=== PATIENT | male | born 1965 | race Caucasian/White ===

== ENCOUNTER → 2017-01-03 | Outpatient (CLI) | payer MEDICARE, OTHER ==
[~2017-01-03] MED LIST: DEPA500T3 PO; DILA100C PO; HYDR-3580 PO
--- NOTE | 2017-01-03 14:31 | RADRPT ---
EXAM DATE/TIME: 01/03/2017 10:24 [facility] COMPARISON: No previous studies available for comparison. INDICATIONS : Low back pain, injury during a seizure 10 months ago. MEDICAL HISTORY : Epilepsy SURGICAL HISTORY : left femur surgery ENCOUNTER: Initial ACUITY: 7 - 11 months PAIN SCORE: 8/10 LOCATION: Bilateral lumbar spine FINDINGS: There are five non-rib bearing vertebral bodies. The vertebral bodies are in normal alignment withou t evidence of subluxation or scoliosis. The disc spaces are maintained. The posterior elements are intact without evidence of spondylolysis. The pedicles are intact. Bony mineralization is normal. No fracture is identified. CONCLUSION: No acute disease. Rdui Burton MD on January 03, 2017 at 14:28 Board Certified Radiologist. This report was verified electronically.
== END ==
LOC: HRAD 09:54
PROVIDERS: ATTEND Family Medicine
DX: M54.5 Low back pain (principal)
CPT/HCPCS: 72110

== ENCOUNTER 2017-03-19 14:15 | Emergency (ER) | payer OTHER ==
[~2017-03-19] VITALS: Ht 172.7 cm; Wt 51.0 kg
[2017-03-19 14:18] VITALS: BP 153/85; PULSE 86; RESP 16; TEMP 98.1; O2SAT 98
--- NOTE | 2017-03-19 14:30 | PD ---
Physical Exam Date Seen by Provider: Mar 19, 2017 Time Seen by Provider: 14:26 Narrative Pt presents with back pain, pt states he fell yesterday. He was going to get the mail and the ground was wet, he slipped and fell. He reports hitting his head. He states the pain is worse today which is what prompted him to seek treatment. He doesn't remember what happened initially after the fall. Pt appears groggy in triage. VSS. Awaiting bed placement. Data Data Last Documented VS Vital Signs Date Time Temp Pulse Resp B/P (MAP) Pulse Ox O2 Delivery O2 Flow Rate FiO2 03/19/17 14:18 98.1 86 16 153/85 (107) 98 MDM Supervised Visit with STEVEN: Ondina Lucas Mar 19, 2017 14:29
[2017-03-19 14:39] VITALS: BP 134/69; PULSE 84; RESP 24; O2SAT 99
[2017-03-19] MEDS ORDERED: SODIUM CHLOR 0.9% 1000 ML INJ 1,000 ML IV ONE (14:46)
[2017-03-19] MEDS ORDERED: DEPA500T3 PO (14:51)
[2017-03-19] MEDS ORDERED: DILA100C PO (14:51)
--- NOTE | 2017-03-19 14:55 | PD ---
HPI Chief Complaint: Fall Time Seen by Provider: 14:46 Travel History International Travel<30 days: No Contact w/Intl Traveler<30days: No Traveled to known affect area: No History of Present Illness HPI Patient comes in for evaluation status post fall that occurred yesterday around 1600. Patient he was walking to get the mail when the fall occurred. Patient uncertain if he had a syncopal episode, had a seizure, or just tripped and fell. Patient states he was walking to the mailbox and the next thing he new he was on the ground looking up at his family. Patient's is uncertain if anyone saw this happen. Patient states he's been taking his seizure medication as prescribed. Patient complaining primarily of right low back pain describes as a achy soreness without radiation. Patient has tried ibuprofen along with ice with little improvement of his symptoms. Pain is worse with walking and certain movement. Patient also complaining of left-sided chest pain when he takes a deep breath or coughs. Denies any headache, change in vision, facial pain, neck pain, possible change in bowel or bladder, abdominal pain, fevers, or drug use. He states he has not done drugs in a couple of years. PFSH Past Medical History Arthritis: No Asthma: No Autoimmune Disease: No Blood Disorders: No Anxiety: Yes Depression: Yes Heart Rhythm Problems: No Cancer: Yes (Spinal cancer) Cardiovascular Problems: Yes High Cholesterol: No Chemotherapy: Yes Chest Pain: No Congestive Heart Failure: No COPD: No Cerebrovascular Accident: No Diabetes: No Diminished Hearing: Yes ([place]) Endocrine: No Gastrointestinal Disorders: No GERD: No Glaucoma: No Genitourinary: No Headaches: Yes Hepatitis: No Hiatal Hernia: No Hypertension: Yes (NOT TREATED FOR HTN) Immune Disorder: No Implanted Vascular Access Dvce: No Kidney Stones: No Musculoskeletal: Yes (Spinal cancer) Neurologic: Yes Psychiatric: Yes Reproductive: No Respiratory: No Immunizations Current: No Migraines: No Myocardial Infarction: No Radiation Therapy: Yes Renal Failure: No Seizures: Yes Sickle Cell Disease: No Sleep Apnea: No Thyroid Disease: No Ulcer: No PNEUMOCCOCAL Vaccine (Year): 2 Past Surgical History Abdominal Surgery: No AICD: No Appendectomy: No Arteriovenous Shunt: No Cardiac Surgery: No Cholecystectomy: No Ear Surgery: No Endocrine Surgery: No Eye Surgery: No Genitourinary Surgery: No Gynecologic Surgery: No Insulin Pump: No Joint Replacement: No Neurologic Surgery: No Oral Surgery: No Pacemaker: No Thoracic Surgery: No Other Surgery: Yes (Left middle finger 2004) Social History Alcohol Use: No (HX OF) Tobacco Use: Yes (PACK A DAY) Substance Use: Yes (Marijuana) Allergies-Medications (Allergen,Severity, Reaction): Coded Allergies: No Known Allergies (Verified , 03/19/17) Reported Meds & Prescriptions Reported Meds & Active Scripts Active Flexeril (Cyclobenzaprine HCl) 10 Mg Tab 10 Mg PO Q8HR PRN Naprosyn (Naproxen) 500 Mg Tab 500 Mg PO Q12HR PRN Hydrocodone-Acetaminophen 7.5-325 mg Tab 1 Tab PO Q4H PRN Reported Dilantin (Phenytoin Extended) 100 Mg Cap 100 Mg PO BID Depakote ER (Divalproex Sodium) 500 Mg Bello 500 Mg PO TID Review of Systems Except as stated in HPI: all other systems reviewed are Neg Physical Exam Narrative GENERAL: Well-developed, under nourished, in no acute distress, and non-ill appearing. SKIN: Focused skin assessment warm and dry. HEAD: Atraumatic. Normocephalic. EYES: Pupils equal and round. EOMI. No scleral icterus. No injection or drainage. ENT: No nasal bleeding or discharge. Mucous membranes pink and moist. NECK: Trachea midline. Supple. No nuclear rigidity. CARDIOVASCULAR: Regular rate and rhythm. No murmur appreciated. RESPIRATORY: No accessory muscle use. No respiratory distress. Clear to auscultation. Breath sounds equal bilaterally. GASTROINTESTINAL: Abdomen soft, non-tender, nondistended, and no guarding. Hepatic and splenic margins not palpable. No pulsatile mass. MUSCULOSKELETAL: No obvious deformities. No clubbing. No cyanosis. No edema. Full range of motion. Patient reports tenderness to her to us, so the right lumbar spine. There is no tenderness or crepitus or midline throughout spinal column. Straight leg test negative bilaterally.Hip: FROM and equal BL with passive flexion, extension, Abduction, Adduction, and internal/external rotation. Pulses equal BL distal to injury. Capillary refill less than 2 seconds distal to injury and equal BL. FROM distal to injury and equal BL. Strength distal to injury equal BL. NV intact distal to injury and equal BL. Plantar flexion and dorsal flexion equal BL. Dorsal pulses equal BL. Sensation equal BL 1st web space. NEUROLOGICAL: Awake and alert. No obvious cranial nerve deficits. Motor grossly within normal limits. Normal speech. PSYCHIATRIC: Appropriate mood and affect; insight and judgment normal. Data Data Last Documented VS Vital Signs Date Time Temp Pulse Resp B/P (MAP) Pulse Ox O2 Delivery O2 Flow Rate FiO2 03/19/17 19:03 03/19/17 16:03 18 03/19/17 14:46 81 99 Room Air 03/19/17 14:18 98.1 Orders Orders Electrocardiogram (03/19/17 14:46) Basic Metabolic Panel (Bmp) (03/19/17 14:46) Comprehensive Metabolic Panel (03/19/17 14:46) Magnesium (Mg) (03/19/17 14:46) Ckmb (Isoenzyme) Profile (03/19/17 14:46) Troponin I (03/19/17 14:46) Act Partial Throm Time (Ptt) (03/19/17 14:46) Prothrombin Time / Inr (Pt) (03/19/17 14:46) Urinalysis - C+S If Indicated (03/19/17 14:46) Chest, Single Ap (03/19/17 14:46) Ct Brain W/O Iv Contrast(Rout) (03/19/17 14:46) Ct Cerv Spine W/O Contrast (03/19/17 14:46) Ecg Monitoring (03/19/17 14:46) Iv Access Insert/Monitor (03/19/17 14:46) Oximetry (03/19/17 14:46) Sodium Chloride 0.9% Flush (Ns Flush) (03/19/17 15:00) Sodium Chlor 0.9% 1000 Ml Inj (Ns 1000 M (03/19/17 14:46) Spine, Lumbar - Ltd (Ap & Lat) (03/19/17 14:46) Valproic Acid (Depakene) (03/19/17 14:46) Phenytoin (Dilantin) (03/19/17 14:46) Drug Screen, Random Urine (03/19/17 14:46) Morphine Inj (Morphine Inj) (03/19/17 15:00) Ondansetron Inj (Zofran Inj) (03/19/17 15:00) Complete Blood Count With Diff (03/19/17 15:41) CKMB (03/19/17 14:58) CKMB% (03/19/17 14:58) Phenytoin (Dilantin) (03/19/17 18:00) Labs Laboratory Tests Test 03/19/17 14:58 03/19/17 15:44 Prothrombin Time 10.8 SEC Prothromb Time International Ratio 1.0 RATIO Activated Partial Thromboplast Time 29.4 SEC Blood Urea Nitrogen 17 MG/DL Creatinine 0.80 MG/DL Random Glucose 89 MG/DL Total Protein 6.8 GM/DL Albumin 3.5 GM/DL Calcium Level 8.3 MG/DL Magnesium Level 2.1 MG/DL Alkaline Phosphatase 101 U/L Aspartate Amino Transf (AST/SGOT) 24 U/L Alanine Aminotransferase (ALT/SGPT) 23 U/L Total Bilirubin 0.6 MG/DL Sodium Level 138 MEQ/L Potassium Level 3.7 MEQ/L Chloride Level 102 MEQ/L Carbon Dioxide Level 28.0 MEQ/L Anion Gap 8 MEQ/L Estimat Glomerular Filtration Rate 102 ML/MIN Total Creatine Kinase 280 U/L Creatine Kinase MB 5.3 NG/ML Troponin I 0.02 NG/ML Phenytoin (Dilantin) Level 1.0 MCG/ML Valproic Acid (Depakene) Level 88 MCG/ML White Blood Count 6.3 TH/MM3 Red Blood Count 4.49 MIL/MM3 Hemoglobin 14.1 GM/DL Hematocrit 42.0 % Mean Corpuscular Volume 93.5 FL Mean Corpuscular Hemoglobin 31.4 PG Mean Corpuscular Hemoglobin Concent 33.5 % Red Cell Distribution Width 14.5 % Platelet Count 211 TH/MM3 Mean Platelet Volume 8.6 FL Neutrophils (%) (Auto) 78.9 % Lymphocytes (%) (Auto) 11.9 % Monocytes (%) (Auto) 8.0 % Eosinophils (%) (Auto) 0.8 % Basophils (%) (Auto) 0.4 % Neutrophils # (Auto) 5.0 TH/MM3 Lymphocytes # (Auto) 0.8 TH/MM3 Monocytes # (Auto) 0.5 TH/MM3 Eosinophils # (Auto) 0.1 TH/MM3 Basophils # (Auto) 0.0 TH/MM3 CBC Comment DIFF FINAL Differential Comment MDM Medical Decision Making Medical Screen Exam Complete: Yes Emergency Medical Condition: Yes Interpretation(s) EKG reviewed by Dr. Bruce shows normal sinus rhythm with ventricular rate of 77. No STEMI. Chest x-ray by the radiologist shows: No acute disease. Differential Diagnosis Fracture, strain, contusion, syncope, subtherapeutic Dilantin, intracranial hemorrhage, closed head injury, pneumothorax, acute coronary syndrome, electrolyte abnormality, other Narrative Course Patient presents with apparent back strain. The patient presented complaining of back pain. There was history of preceding trauma. X-rays were obtained and no obvious fracture or acute disease was noted at this time. The patient has no neurological complaints. The patient has been behaving normally and no notable altered mental status. Orlando score of 15. The patients neurological exam is normal with normal motor and sensory. There is no saddle paresthesias reported and no bowel or bladder incontinence or retention. . The patients evaluation was consistent with soft tissue injury and not consistent with bony injury. Clinical suspicion, plan of care and management was discussed with the patient. The patient was instructed to follow up with their health care provider. The patient was also instructed to return if the pain worsened, changed, or developed weakness or bowel or bladder trouble. The patient agreed with plan. There was no evidence to support genitourinary etiology. There is also no evidence to suggest vascular pathology such as AAA dissection. No fevers or other evidence to suspect infectious processes, abscess etc. Patient presents with closed head injury. There was no evidence of cranial or intracranial injury noted on CT of the head and no evidence of fracture or injury to cervical spine on C-spine CT. The patient has been behaving normally and no notable altered mental status. Orlando score of 15. The neurologic exam is normal. The patient is awake and aware and motor sensory exams are normal. There is no clinical evidence to support intracranial injury or bleed. Upon reexamination patient is in no acute distress. Patient in no obvious distress upon re-evaluation sleeping comfortably in bed . All pertinent laboratory/Radiology result(s) discussed with patient. Patient never did provide a urine sample. Patient was asked if they wanted to speak to my attending, which the patient did not wish to do at this time. Discussed patient with Dr. Bruce prior to discharge, was in agreement with plan of care and disposition. Any questions/concerns in reference to patient diagnosis/ condition discussed and clarified prior to patient's discharge. Reinforced sheer importance of close follow up with patient's primary physician or primary care clinic. Instructed patient to return to ED immediately, if symptoms return/ worsen. Pt showed understanding of above instructions. Further instructions and recommendations were detailed in discharge paperwork. Pt ambulated without difficulty out of ED at discharge. Diagnosis Primary Impression: Low back strain Qualified Codes: S39.012A - Strain of muscle, fascia and tendon of lower back , initial encounter Additional Impressions: Closed head injury Qualified Codes: S09.90XA - Unspecified injury of head, initial encounter Subtherapeutic serum dilantin level Referrals: [facility] Patient Instructions: Encephalopathy (GEN), General Instructions, Head Injury ( ED), Low Back Strain (ED), Phenytoin (By mouth) Additional Instructions: Follow-up with your primary care physician this week for reevaluation and recheck of your Dilantin level. Take all medication as prescribed. Return to the emergency department if symptoms get worse. Med/Other Pt SpecificInfo: Prescription(s) given Scripts Cyclobenzaprine (Flexeril) 10 Mg Tab 10 MG PO Q8HR Y for MUSCLE PAIN, #15 TAB 0 Refills Prov: Callum Bruce MD 03/19/17 Naproxen (Naprosyn) 500 Mg Tab 500 MG PO Q12HR Y for PAIN SCALE 1 TO 10, #14 TAB 0 Refills Prov: Callum Bruce MD 03/19/17 Disposition: 01 DISCHARGE HOME Condition: Stable Ric Lucas Mar 19, 2017 14:55
[2017-03-19] MEDS ORDERED: ONDANSETRON HCL 4 MG/2 ML VIAL IV PUSH ONE (15:00)
[2017-03-19] MEDS ORDERED: MORPHINE SULFATE 4 MG/ML INJ IV PUSH ONE (15:00)
[2017-03-19] MEDS ORDERED: SODIUM CHLORIDE 0.9% FLUSH 10 ML FLUSH IVF PRN (15:00)
[2017-03-19 15:38] LABS: APTT (PATIENT) 29.4 SEC (24.3-30.1); PROTHROMBIN TIME - PATIENT 10.8 SEC (9.8-11.6)
[2017-03-19 15:47] LABS: ANION GAP 8 MEQ/L (5-15); AST (GOT) 24 U/L (15-37); BLOOD UREA NITROGEN 17 MG/DL (7-18); CHLORIDE 102 MEQ/L (98-107); GLOMERULAR FILTRATION RATE 102 ML/MIN (>89); MAGNESIUM 2.1 MG/DL (1.5-2.5); POTASSIUM 3.7 MEQ/L (3.5-5.1); SODIUM (NA) 138 MEQ/L (136-145)
[2017-03-19 15:50] LABS: ALKALINE PHOSPHATASE 101 U/L (45-117); ALT (GPT) 23 U/L (12-78); CREATINE KINASE 280 U/L (39-308); TOTAL BILIRUBIN ADULT 0.6 MG/DL (0.2-1.0)
--- NOTE | 2017-03-19 15:56 | RADRPT ---
EXAM DATE/TIME: 03/19/2017 15:30 [facility] COMPARISON: No previous studies available for comparison. INDICATIONS : Left chest pain. MEDICAL HISTORY : Seizures. SURGICAL HISTORY : None. ENCOUNTER: Initial ACUITY: 4 - 6 days PAIN SCORE: 4/10 LOCATION: Left chest FINDINGS: A single view of the chest demonstrates the lungs to be symmetrically aerated without evidence of mas s, infiltrate or effusion. The cardiomediastinal contours are unremarkable. Osseous structures are intact. CONCLUSION: No acute disease. Deepak Suarez MD FACR on March 19, 2017 at 15:54 Board Certified Radiologist. This report was verified electronically.
--- NOTE | 2017-03-19 15:59 | RADRPT ---
EXAM DATE/TIME: 03/19/2017 15:35 [facility] COMPARISON: No previous studies available for comparison. INDICATIONS : Back pain after passing out and falling. MEDICAL HISTORY : None. SURGICAL HISTORY : None. ENCOUNTER: Initial ACUITY: 1 day PAIN SCORE: 10/10 LOCATION: Left middle back. FINDINGS: Two view examination was performed. There are five non-rib bearing vertebral bodies. The vertebral bodies are in normal alignment without evidence of subluxation or scoliosis. The disc spaces are mari ntained. The pedicles are intact. Bony mineralization is normal. No fracture is identified. CONCLUSION: Negative for an acute process. Deepak Suarez MD FACR on March 19, 2017 at 15:55 Board Certified Radiologist. This report was verified electronically.
[2017-03-19 16:03] VITALS: RESP 18
[2017-03-19 16:03] LABS: CKMB 5.3 NG/ML (0.5-3.6)
[2017-03-19 16:07] LABS: BASOPHIL % 0.4 % (0.0-2.0); EOSINOPHIL # 0.1 TH/MM3 (0-0.4); EOSINOPHIL % 0.8 % (0.0-4.0); HEMO FLAGS DIFF FINAL; LYMPH % 11.9 % (9.0-44.0); LYMPHOCYTE # 0.8 TH/MM3 (1.0-4.8); MEAN CELL VOLUME 93.5 FL (80.0-100.0); MEAN CORPUSCULAR HEMOGLOBIN 31.4 PG (27.0-34.0); MEAN CORPUSCULAR HGB CONC 33.5 % (32.0-36.0); NEUT % 78.9 % (16.0-70.0); PLATELET COUNT 211 TH/MM3 (150-450); RED BLOOD COUNT 4.49 MIL/MM3 (4.50-5.90); RED CELL DISTRIBUTION WIDTH 14.5 % (11.6-17.2); WHITE BLOOD COUNT 6.3 TH/MM3 (4.0-11.0)
--- NOTE | 2017-03-19 17:04 | RADRPT ---
EXAM DATE/TIME: 03/19/2017 16:20 [facility] COMPARISON: CT BRAIN W/O CONTRAST, June 19, 2016, 13:52. INDICATIONS : Trauma; fall yesterday. RADIATION DOSE: 38.69 CTDIvol (mGy) MEDICAL HISTORY : Hypertension. Carcinoma, not otherwise specified. SURGICAL HISTORY : None. ENCOUNTER: Initial ACUITY: 1 day PAIN SCALE: 5/10 LOCATION: cranial TECHNIQUE: Multiple contiguous axial images were obtained of the head. Using automated exposure control and adj ustment of the mA and/or kV according to patient size, radiation dose was kept as low as reasonably a chievable to obtain optimal diagnostic quality images. DICOM format image data is available electro nically for review and comparison. FINDINGS: CEREBRUM: The ventricles are normal for age. No evidence of midline shift, mass lesion, hemorrhage or acute in farction. No extra-axial fluid collections are seen. POSTERIOR FOSSA: The cerebellum and brainstem are intact. The 4th ventricle is midline. The cerebellopontine angle i s unremarkable. EXTRACRANIAL: The visualized portion of the orbits is intact. SKULL: The calvaria is intact. No evidence of skull fracture. CONCLUSION: Negative for acute traumatic injury. Deepak Suarez MD FACR on March 19, 2017 at 17:02 Board Certified Radiologist. This report was verified electronically.
--- NOTE | 2017-03-19 17:31 | RADRPT ---
EXAM DATE/TIME: 03/19/2017 16:20 [facility] COMPARISON: CT CERVICAL SPINE W/O CONTRAST, June 22, 2016, 12:32. INDICATIONS : Trauma; fall yesterday. RADIATION DOSE: 39.41 CTDIvol (mGy) MEDICAL HISTORY : Seizures. Carcinoma, not otherwise specified. SURGICAL HISTORY : None. ENCOUNTER: Initial ACUITY: 1 day PAIN SCALE: 6/10 LOCATION: Bilateral neck TECHNIQUE: Volumetric scanning of the cervical spine was performed. Multiplanar reconstructions in the sagittal, coronal and oblique axial planes were performed. Using automated exposure control and adjustment o f the mA and/or kV according to patient size, radiation dose was kept as low as reasonably achievable to obtain optimal diagnostic quality images. DICOM format image data is available electronically f or review and comparison. FINDINGS: VERTEBRAE: Normal vertebral body height. ALIGNMENT: No evidence of subluxation. C2-C3: The bony spinal canal is normal in size. No evidence of disc bulge or herniation. The neural forami na are bilaterally patent. C3-C4: The bony spinal canal is normal in size. No evidence of disc bulge or herniation. The neural forami na are bilaterally patent. C4-C5: The bony spinal canal is normal in size. No evidence of disc bulge or herniation. The neural forami na are bilaterally patent. C5-C6: The bony spinal canal is normal in size. No evidence of disc bulge or herniation. The neural forami na are bilaterally patent. C6-C7: The bony spinal canal is normal in size. No evidence of disc bulge or herniation. The neural forami na are bilaterally patent. C7-T1: The bony spinal canal is normal in size. No evidence of disc bulge or herniation. The neural forami na are bilaterally patent. CONCLUSION: Negative for fracture. Deepak Suarez MD FACR on March 19, 2017 at 17:21 Board Certified Radiologist. This report was verified electronically.
[2017-03-19] MEDS ORDERED: CYCL1TAB29 PO (17:55)
[2017-03-19] MEDS ORDERED: NAPR500 PO (17:55)
[2017-03-19] MEDS ORDERED: PHENYTOIN SODIUM 100 MG CAP PO ONE (18:00)
--- NOTE | 2017-03-20 13:18 | EKG ---
Date Performed: 03/19/2017 Time Performed: 15:03:18 PTAGE: 52 years EKG: Sinus rhythm POSSIBLE RIGHT ATRIAL ENLARGEMENT POSSIBLE LEFT ATRIAL ENLARGEMENT BORDERLINE ECG PREVIOUS TRACING : 06/19/2016 13.17 Compared to prior tracing no significant change DOCTOR: Bronwyn Prajapati Interpretating Date/Time 03/20/2017 13:16:33
== END 2017-03-19 19:05 | disposition home or self-care (01) ==
LOC: NEPE 14:15
DX: S39.012A Strain of muscle, fascia and tendon of lower back, initial encounter (principal); S09.90XA Unspecified injury of head, initial encounter; W01.0XXA Fall on same level from slipping, tripping and stumbling without subsequent striking against object, initial encounter; Y93.01 Activity, walking, marching and hiking; Z72.0 Tobacco use; Z79.899 Other long term (current) drug therapy
CPT/HCPCS: 70450; 71010; 72100; 72125; 80053; 80164; 80185; 82550; 82552; 83735; 84484; 85025; 85610; 85730; 93005; 96361; 96374; 96375; 99285; J2270; J2405; J7030

== ENCOUNTER 2017-05-07 13:08 | Emergency (ER) | payer OTHER ==
[~2017-05-07] VITALS: Ht 172.7 cm; Wt 47.0 kg
[~2017-05-07 13:08] MED LIST changes: +CYCL1TAB29 PO; +NAPR500 PO
[2017-05-07 13:11] VITALS: BP 147/80; PULSE 110; RESP 16; TEMP 97.8; O2SAT 100
[2017-05-07] MEDS ORDERED: ROBA500T PO (14:26)
--- NOTE | 2017-05-07 14:26 | PD ---
HPI Chief Complaint: Back/ Neck Pain or Injury Time Seen by Provider: 13:31 Travel History International Travel<30 days: No Contact w/Intl Traveler<30days: No Traveled to known affect area: No History of Present Illness HPI 52 year old male with history of C7 fracture and chronic low back pain presents to the ED for evaluation of back pain. Pt denies any new injury. No focal deficits or weakness. No saddle paresthesia or loss of bowel or bladder. Pt states the pain is constant and across his entire lower back. Rates it a 6/10. Denies urinary symptoms. No recent illnesses, fever, or chills.Pt is out of pain control. Denies IVDA. He has no other symptoms to report. PFSH Past Medical History Arthritis: No Asthma: No Autoimmune Disease: No Blood Disorders: No Anxiety: Yes Depression: Yes Heart Rhythm Problems: No Cancer: Yes (Spinal cancer) Cardiovascular Problems: Yes High Cholesterol: No Chemotherapy: Yes Chest Pain: No Congestive Heart Failure: No COPD: No Cerebrovascular Accident: No Diabetes: No Diminished Hearing: Yes ([place] Endocrine: No Gastrointestinal Disorders: No GERD: No Glaucoma: No Genitourinary: No Headaches: Yes Hepatitis: No Hiatal Hernia: No Hypertension: Yes (NOT TREATED FOR HTN) Immune Disorder: No Implanted Vascular Access Dvce: No Kidney Stones: No Musculoskeletal: Yes (Spinal cancer) Neurologic: Yes Psychiatric: Yes Reproductive: No Respiratory: No Immunizations Current: No Migraines: No Myocardial Infarction: No Radiation Therapy: Yes Renal Failure: No Seizures: Yes Sickle Cell Disease: No Sleep Apnea: No Thyroid Disease: No Ulcer: No PNEUMOCCOCAL Vaccine (Year): 2 Past Surgical History Abdominal Surgery: No AICD: No Appendectomy: No Arteriovenous Shunt: No Cardiac Surgery: No Cholecystectomy: No Ear Surgery: No Endocrine Surgery: No Eye Surgery: No Genitourinary Surgery: No Gynecologic Surgery: No Insulin Pump: No Joint Replacement: No Neurologic Surgery: No Oral Surgery: No Pacemaker: No Thoracic Surgery: No Other Surgery: Yes (Left middle finger 2004) Social History Alcohol Use: No (HX OF) Tobacco Use: Yes (PACK A DAY) Substance Use: Yes (Marijuana) Allergies-Medications (Allergen,Severity, Reaction): Coded Allergies: No Known Allergies (Verified , 03/19/17) Reported Meds & Prescriptions Reported Meds & Active Scripts Active Robaxin (Methocarbamol) 500 Mg Tab 500 Mg PO QID PRN Flexeril (Cyclobenzaprine HCl) 10 Mg Tab 10 Mg PO Q8HR PRN Naprosyn (Naproxen) 500 Mg Tab 500 Mg PO Q12HR PRN Hydrocodone-Acetaminophen 7.5-325 mg Tab 1 Tab PO Q4H PRN Reported Dilantin (Phenytoin Extended) 100 Mg Cap 100 Mg PO BID Depakote ER (Divalproex Sodium) 500 Mg Bello 500 Mg PO TID Review of Systems Except as stated in HPI: all other systems reviewed are Neg Physical Exam Narrative GENERAL: Well nourished male pt in no acute distress. Pt is ambulatory with a non-antalgic gait SKIN: Warm and dry. HEAD: Normocephalic. EYES: No scleral icterus. No injection or drainage. NECK: Supple, trachea midline. No JVD or lymphadenopathy. CARDIOVASCULAR: Regular rate and rhythm without murmurs, gallops, or rubs. RESPIRATORY: Breath sounds equal bilaterally. No accessory muscle use. GASTROINTESTINAL: Abdomen soft, non-tender, nondistended. MUSCULOSKELETAL: No cyanosis, or edema. Equal strength bilateral lower extremities. Sensation intact distal extremities BACK: No midline tenderness and without obvious deformity. There is tenderness elicited to palpation in the lumbar paraspinous musculature. No CVA tenderness. Data Data Last Documented VS Vital Signs Date Time Temp Pulse Resp B/P (MAP) Pulse Ox O2 Delivery O2 Flow Rate FiO2 05/07/17 15:06 05/07/17 13:11 97.8 110 16 100 Orders Orders Ibuprofen (Motrin) (05/07/17 14:30) Cyclobenzaprine (Flexeril) (05/07/17 14:30) Ed Discharge Order (05/07/17 14:27) [facility] Medical Decision Making Medical Screen Exam Complete: Yes Emergency Medical Condition: Yes Medical Record Reviewed: Yes Differential Diagnosis low back strain vs discogenic pain vs radiculopathy Narrative Course 52 year old male presents to the ED for evaluation of back pain. This is chronic for the patient. Pt has no spinal tenderness and no focal deficits or weakness on exam. Pt will be provided a prescription for pain control and is encouraged to follow up with his primary care provider. He will be discharged at this time. Diagnosis Primary Impression: Back pain Qualified Codes: M54.5 - Low back pain; G89.29 - Other chronic pain Referrals: Primary Care Physician Patient Instructions: Back Pain (ED), General Instructions Additional Instructions: Follow-up with a primary care provider Return immediately with any acute worsening of symptoms Med/Other Pt SpecificInfo: Prescription(s) given Scripts Methocarbamol (Robaxin) 500 Mg Tab 500 MG PO QID Y for MUSCLE SPASM, #20 TAB 0 Refills Prov: Cori Millan 05/07/17 Disposition: 01 DISCHARGE HOME Condition: Stable Cori Millan May 07, 2017 14:26
[2017-05-07] MEDS ORDERED: IBUPROFEN 600 MG TAB PO ONE (14:30)
[2017-05-07] MEDS ORDERED: CYCLOBENZAPRINE HCL 10 MG TAB PO ONE (14:30)
== END 2017-05-07 15:09 | disposition home or self-care (01) ==
LOC: NEPK 13:08
DX: M54.5 Low back pain (principal); I10 Essential (primary) hypertension
CPT/HCPCS: 99283